=== PATIENT | female | born 1995 | race Caucasian/White ===

== ENCOUNTER 2017-02-13 18:49 | Emergency (ER) | payer OTHER ==
[~2017-02-13] VITALS: Ht 165.1 cm; Wt 88.5 kg
[~2017-02-13 18:49] MED LIST: NOHOMEMEDS
[2017-02-13 19:19] LABS: HEMATOCRIT 39.9 % (36.0-46.0); MCH 29.7 PG (29.0-34.0); MCHC 33.3 G/DL (30.0-36.0); MCV 89.1 FL (83-99); MEAN PLAT.VOLUME 9.7 uM^3 (9.5-12.4); PLATELET COUNT 337 K/uL (156-360); RBC DIS.WIDTH-CV 12.2 % (11.8-14.6); RBC DIS.WIDTH-SD 39.1 % (39-53); RED BLOOD COUNT 4.48 M/uL (3.80-5.20)
[2017-02-13 19:29] LABS: CHLORIDE 105 mEq/L (99-109); POTASSIUM 3.6 mEq/L (3.7-5.4); SODIUM 140 mEq/L (136-147)
[2017-02-13 19:31] LABS: GLUCOSE 96 mg/dL (70-99)
[2017-02-13 19:33] LABS: ANION GAP 9 MEQ/L (2-14); TOTAL BILIRUBIN 0.8 mg/dL (0.0-1.0)
[2017-02-13 19:35] LABS: ALKALINE PHOSPHATASE 100 IU/L (3-129); GFR ESTIMATE (CALCULATED) > 59 mL/min/
[2017-02-13 19:36] LABS: UREA NITROGEN (BUN) 17 mg/dL (9-23)
[2017-02-13 19:45] LABS: QUANTITATIVE HCG < 4.0 MIU/ML
[2017-02-13 19:52] LABS: LIPASE 26 U/L (1.0-51.0)
[2017-02-13 19:54] LABS: BILIRUBIN NEGATIVE; BLOOD NEGATIVE; COLOR YELLOW ((YELLOW)); GLUCOSE (STRIP) NEGATIVE; KETONES NEGATIVE; LEUKOCYTES NEGATIVE; NITRITE NEGATIVE; PROTEIN (STRIP) 30; SPECIFIC GRAVITY 1.024 (1.000-1.030); UROBILINOGEN 0.2 MG/DL (0.2-1.0)
[2017-02-13 19:55] LABS: ADD MIUA? NO; UCUL ADDED? NO
[2017-02-13] MEDS ORDERED: PEPCID20 MG PO (19:58)
[2017-02-13 20:48] VITALS: BP 121/86
== END 2017-02-13 20:50 | disposition home or self-care (01) ==
LOC: EME 18:49
DX: R10.13 Epigastric pain (principal); R19.7 Diarrhea, unspecified; F17.200 Nicotine dependence, unspecified, uncomplicated; Z88.0 Allergy status to penicillin
CPT/HCPCS: 80053; 81003; 83690; 84702; 85027; 99281; 99284

== ENCOUNTER 2017-03-13 16:49 | Emergency (ER) | payer OTHER ==
[~2017-03-13] VITALS: Ht 165.1 cm; Wt 87.2 kg
[~2017-03-13 16:49] MED LIST changes: +PEPCID20 MG PO
[2017-03-13 18:09] LABS: INTERNAL CONTROL VALID? YES
[2017-03-13 19:10] VITALS: BP 132/88
== END 2017-03-13 19:11 | disposition home or self-care (01) ==
LOC: EME 16:49
PROVIDERS: Emergency Medicine
DX: F32.9 Major depressive disorder, single episode, unspecified (principal); F43.24 Adjustment disorder with disturbance of conduct; F17.200 Nicotine dependence, unspecified, uncomplicated; Z04.6 Encounter for general psychiatric examination, requested by authority
CPT/HCPCS: 84703; 90837; 99281; 99285